=== PATIENT | female | born 1970 | race Caucasian/White ===

== ENCOUNTER 2019-03-29 21:20 | Emergency (ER) | payer SELFPAY ==
[2019-03-29] MEDS ORDERED: Bacitracin Oint 1 GM U/D Packet TOP ONE (22:53)
[2019-03-29] MEDS ORDERED: Diphtheria/Tetanus Toxoids,Adult (Td) 0.5 ML SDV IM ONE (23:01)
--- NOTE | 2019-03-29 23:11 | EDM.PDOC ---
ED HPI GENERAL MEDICAL PROBLEM - General Chief Complaint: Laceration Stated Complaint: SLICED LEFT POINTER FINGER Time Seen by Provider: 03/29/19 22:52 Source of Information: Reports: Patient, Family () History Limitations: Reports: No Limitations - History of Present Illness INITIAL COMMENTS - FREE TEXT/NARRATIVE: chief complaint: cut point finger This is a 48 year old female presents to ER for laceration repair. She was cutting food with a serrated knife, and it was sharp and cut thru the food into her left first finger. bleeding controlled with pressure and cold water. reports many years since last tetanus, does not want Tdap only tetanus or Td. Onset: Sudden Duration: Hour(s):, Constant Location: Reports: Lower Extremity, Right (pointer finger) Improves with: Reports: Other (pressure dressing) Worsens with: Reports: None Context: Reports: Other (cut with a knife) Associated Symptoms: Reports: No Other Symptoms Treatments [employer]: Reports: Dressing(s) - Related Data Allergies Allergy/AdvReac Type Severity Reaction Status Date / Time codeine Allergy Hallucinati Verified 03/29/19 22:27 ons Home Meds: Home Meds NK [No Known Home Meds] 03/29/19 [History] Past Medical History - Past Surgical History Female Surgical History: Reports: D&C Musculoskeletal Surgical History: Reports: Arthroscopic Procedure, Shoulder Replacement Social & Family History - Tobacco Use Smoking Status *Q: Never Smoker ED ROS GENERAL - Review of Systems Review Of Systems: See Below Constitutional: Reports: No Symptoms Skin: Reports: Other (finger laceration) Hematologic/Lymphatic: Reports: No Symptoms Immunologic: Reports: No Symptoms ED EXAM, SKIN/RASH Exam: See Below Exam Limited By: No Limitations General Appearance: Alert, WD/WN, No Apparent Distress Respiratory/Chest: Lungs Clear, Normal Breath Sounds Cardiovascular: Regular Rate, Rhythm, No Murmur Extremities: Normal Range of Motion, Other (single laceration to first finger.) Neurological: Alert, Oriented, No Motor/Sensory Deficits Psychiatric: Normal Affect, Normal Mood Skin: Warm, Dry, Wound/Incision (laceration anterior pointer finger tip) Location, Skin: Other (finger left pointer) Characteristics: Linear Associated features: Tenderness Lymphatic: No Adenopathy ED SKIN PROCEDURES - Laceration/Wound Repair Left Anterior Proximal Digit - 2nd (Index) Lac/Wound length In cm: 2 Appearance: Subcutaneous, Linear, Clean, Moderately Contaminated Distal NVT: Neuro & Vascular Intact Anesthetic Type: Local Local Anesthesia - Lidocaine (Xylocaine): 1% Plain Local Anesthetic Volume: 2cc Skin Prep: Chlorhexidine (Hibiciens), Providone-Iodine (Betadine) Saline Irrigation (cc's): 20 Closed with: Sutures Suture Size: 4-0 # of Sutures: 5 Suture Type: Prolene, Interrupted, Simple Sterile Dressing Applied: Provider Tetanus Status Addressed: Yes (Td given in ER.) Complications: No Course - Vital Signs Last Recorded V/S: Last Vital Signs Temp 36.4 C 03/29/19 22:32 Pulse 78 03/29/19 22:32 Resp 16 03/29/19 22:32 BP 135/73 03/29/19 22:32 Pulse Ox 98 03/29/19 22:32 - Orders/Labs/Meds Meds: Medications Discontinued Medications Generic Name Dose Route Start Last Admin Trade Name Freq PRN Reason Stop Dose Admin Bacitracin 1 dose 03/29/19 22:53 03/29/19 23:16 Bacitracin Oint 1 Gm TOP 03/29/19 22:54 1 dose ONETIME ONE Administration Lidocaine HCl 5 ml 03/29/19 22:52 03/29/19 23:16 Xylocaine-Mpf 1% INJECT 03/29/19 22:53 5 ml ONETIME ONE Administration Tetanus/Diphtheria Toxoids 0.5 ml 03/29/19 23:01 03/29/19 23:17 Tenivac IM 03/29/19 23:02 0.5 ml .ONCE ONE Administration - Re-Assessments/Exams Free Text/Narrative Re-Assessment/Exam: laceration repair to linear shaped wound, closed with 5 sutures, bacitracin and bandage applied, Td given., wound care and suture care instructions given to and Mrs. Ruiz Departure - Departure Time of Disposition: 23:37 Disposition: Home, Self-Care 01 Condition: Good Clinical Impression: Broken skin Laceration of finger of left hand Qualifiers: Encounter type: initial encounter Finger: index finger Damage to nail status: without damage Foreign body presence: without foreign body Qualified Code(s): S61.211A - Laceration without foreign body of left index finger without damage to nail, initial encounter - Discharge Information *PRESCRIPTION DRUG MONITORING PROGRAM REVIEWED*: Not Applicable *COPY OF PRESCRIPTION DRUG MONITORING REPORT IN PATIENT VIVIAN: Not Applicable Instructions: Laceration Care, Adult, [id number] Referrals: Chauncey Warren MD [Primary Care Provider] - Forms: ED Department Discharge Care Plan Goals: laceration repair with suture -Td 0.5ml IM -suture placed, left pointer finger -apply antibiotic ointment and keep bandage daily for 3 day then clean and dry -suture removal in 7 to 10 days -monitor for signs of infection, redness, pain, swelling, discharge,fever, chills return to ER Return to ER if not improved or symptoms worsen. - Problem List & Annotations (1) Laceration of finger of left hand SNOMED Code(s): 268662957 Code(s): S61.219A - LACERATION W/O FB OF UNSP FINGER W/O DAMAGE TO NAIL, INIT Status: Acute Priority: High Qualifiers: Encounter type: initial encounter Finger: index finger Damage to nail status: without damage Foreign body presence: without foreign body Qualified Code(s): S61.211A - Laceration without foreign body of left index finger without damage to nail, initial encounter - Problem List Review Problem List Initiated/Reviewed/Updated: No - Assessment/Plan Plan: laceration repair with suture -Td 0.5ml IM -suture placed, -apply antibiotic ointment and keep bandage daily for 3 day then clean and dry -suture removal in 7 to 10 days -monitor for signs of infection, redness, pain, swelling, discharge,fever, chills return to ER Return to ER if not improved or symptoms worsen.
== END 2019-03-29 23:46 | disposition home or self-care (01) ==
LOC: JP.ED 21:20
DX: S61.211A Laceration without foreign body of left index finger without damage to nail, initial encounter (principal); W26.0XXA Contact with knife, initial encounter; Y93.G1 Activity, food preparation and clean up; Z23 Encounter for immunization; Z88.5 Allergy status to narcotic agent
CPT/HCPCS: 12001; 90471; 90714; 99282; J2001